=== PATIENT | male | born 1995 | race Caucasian/White ===

== ENCOUNTER → 2018-05-13 | Emergency (ER) | payer BC ==
[~2018-05-13] VITALS: Ht 175.3 cm; Wt 74.8 kg
[~2018-05-13] MED LIST: CYMBALTA20 MG ORAL; NEURONTIN300 MG ORAL; RISPERIDONE1 MG/1 M1 PO; SYNTHROID50 MCG ORAL
[2018-05-13 13:00] VITALS: BP 134/83
--- NOTE | 2018-05-13 13:21 | Emergency Room Report ---
History of Present Illness General Chief Complaint: Medication Refill Source: Patient Present Illness HPI 22-year-old male with significant history of heroin and alcohol abuse here requesting medication refill for baclofen. Patient claims that he was previously given a prescription for baclofen and was not prescribed correctly overridden correctly on the prescription has been a psychiatrist. He reports he takes baclofen for withdrawal symptoms. Denies taking any other medication. Patient appears anxious, pupils dilated and tremors. Denies recent alcohol ingestion or heroine use. Denies chest pain, SOB, palpitation, abdominal pain, dizziness. He reports suicidal ideation however has no plan. He mentions he was prescribed baclofen and he ran out 2 days ago when his next appointment is Tuesday. Levon Johnston denies homicidal ideation, and any recent drug use Allergies: Coded Allergies: No Known Allergies (Unverified , 05/13/18) Patient History Past Medical History: see triage record Past Surgical History: unable to obtain Pertinent Family History: none Social History: Reports: smoking Immunizations: UTD Reviewed Nursing Documentation: PMH: Agreed; PSxH: Agreed Nursing Documentation-PMH Hx Asthma: Yes Review of Systems All Other Systems: negative except mentioned in HPI Physical Exam Vital Signs Date Time Temp Pulse Resp B/P (MAP) Pulse Ox O2 Delivery O2 Flow Rate FiO2 05/13/18 12:59 98.1 100 18 134/83 98 Sp02 EP Interpretation: reviewed, normal General Appearance: alert, GCS 15, other - anxious Head: normocephalic ENT: normal ENT inspection, normal pharynx Neck: normal inspection, supple Respiratory: normal inspection, no rhonchi, no wheezing Cardiovascular #1: normal inspection, no murmur Gastrointestinal: normal inspection, non tender, soft Rectal: deferred Genitourinary: deferred Musculoskeletal: normal inspection, back normal Neurologic: normal inspection, alert, oriented x3, responsive Psychiatric: normal inspection, memory normal, mood/affect normal, no delusions Skin: normal inspection, normal color, no rash, warm/dry Lymphatic: normal inspection, no adenopathy, axilla node tender (R) Medical Decision Making PA Attestation All diagnosis and treatment plans were reviewed by my supervising physician Dr. Bishop Diagnostic Impression: Primary Impression: Encounter for medication refill Additional Impression: History of drug abuse ER Course 22-year-old male with significant history of heroin and alcohol abuse here requesting medication refill for baclofen. Patient claims that he was previously given a prescription for baclofen and was not prescribed correctly overridden correctly on the prescription has been a psychiatrist. He reports he takes baclofen for withdrawal symptoms. Denies taking any other medication. Patient appears anxious, pupils dilated and tremors. Denies recent alcohol ingestion or heroine use. Denies chest pain, SOB, palpitation, abdominal pain, dizziness. He reports suicidal ideation however has no plan. He mentions he was prescribed baclofen and he ran out 2 days ago when his next appointment is Tuesday. Levon Johnston denies homicidal ideation, and any recent drug use Ddx considered but are not limited to drug abuse,withdrawal symptoms, anxiety Vital signs: are WNL, pt. is afebrile H&PE are most consistent with withdrawal symptoms, drug abuse, ORDERS: none required at this time, the diagnosis is clinical ED INTERVENTIONS: None required at this time. DISCHARGE: At this time pt. is stable for d/c to home. Will provide printed patient care instructions, and any necessary prescriptions. Care plan and follow up instructions have been discussed with the patient prior to discharge. patient has been explained that CURES was done and he is currently on Naloxene and Suboxone for history of drug abuse, has no record on baclofen, and to follow up with the primary care provider or psychiatrist for refills of baclofen patient understands that at this time at the emergency room stating we cannot refill his medication, and has been given multiple referral papers to different facilities intensive assessment of his drug abuse. Last Vital Signs Date Time Temp Pulse Resp B/P (MAP) Pulse Ox O2 Delivery O2 Flow Rate FiO2 05/13/18 12:59 98.1 100 18 134/83 98 Disposition: HOME, SELF-CARE Condition: Stable Patient Instructions: Medicine Refill at the Emergency Department Elias Dahl May 13, 2018 13:21
[2018-05-13 13:35] VITALS: BP 130/98
== END | disposition home or self-care (01) ==
LOC: EMR 13:21
DX: Z76.0 Encounter for issue of repeat prescription (principal); F19.11 Other psychoactive substance abuse, in remission; R45.851 Suicidal ideations; F17.200 Nicotine dependence, unspecified, uncomplicated; F41.9 Anxiety disorder, unspecified
CPT/HCPCS: 99282